=== PATIENT | female | born 1955 | race Caucasian/White ===

== ENCOUNTER 2020-05-07 10:00 | Inpatient (IN) ==
[2020-05-07 12:55] LABS: Basophils # (Auto) 0.02 K/mcL (0.00-0.20); Basophils % (Auto) 0.3 % (0.0-2.0); Eosinophils % (Auto) 5.1 % (0.0-7.0); Hematocrit 38.9 % (36.0-48.0); Hemoglobin 12.5 g/dL (12.0-15.0); Lymphocytes # (Auto) 1.33 K/mcL (1.50-4.80); Lymphocytes % (Auto) 22.7 % (15.0-49.0); Mean Corpuscular HGB Conc 32.1 g/dL (31.0-36.0); Mean Platelet Volume 12.3 fL (7.4-10.4); Monocytes # (Auto) 0.32 K/mcL (0.10-0.90); Monocytes % (Auto) 5.5 % (1.0-12.0); Neutrophils % (Auto) 66.4 % (38.0-78.0); Platelet Count 188 K/mcL (140-440); RBC 4.01 M/mcL (4.00-5.20); Red Cell Distribution Width 14.2 % (11.5-14.5); WBC 5.9 K/mcL (4.5-11.0)
[2020-05-07 13:14] LABS: Estimated Average Glucose(eAG) 120 mg/dL; Hemoglobin A1C 5.8 % Hgb (4.0-6.0)
[2020-05-07 13:38] LABS: Blood Urea Nitrogen 23 mg/dL (8-23); Calcium 9.3 mg/dL (8.6-10.4); Carbon Dioxide 27 mmol/L (22-30); Chloride 105 mmol/L (96-108); Glomerular Filtration Rate 53; Glucose 120 mg/dL (70-105)
[2020-05-07 15:32] LABS: Appearance,Urine CLEAR (Clear); Bilirubin,Urine Negative (Negative); Color,Urine STRAW; Culture Indicated,Urine No; Glucose,Urine (UA) Negative (Negative); Ketones,Urine Negative (Negative); Leukocyte Esterase,Urine Negative /ug (Negative); Nitrate,Urine Negative (Negative); Protein,Urine Negative (Negative); Urine Blood Negative (Negative); Urobilinogen,Urine Negative
[2020-05-14] MEDS ORDERED: PREGABALIN 75 MG CAPSULE PO SCH (06:00)
[2020-05-14] MEDS ORDERED: oxyCODONE 10 MG TAB.ER.12H PO SCH (06:00)
[2020-05-14] MEDS ORDERED: CELECOXIB 200 MG CAPSULE PO SCH (06:00)
[2020-05-14] MEDS ORDERED: ACETAMINOPHEN 500 MG TABLET PO SCH (06:00)
[2020-05-14] MEDS ORDERED: ceFAZolin 3 GM in DEXTROSE 5% IN WATER 50 ML IV SCH (06:00)
[2020-05-14] MEDS ORDERED: SCOPOLAMINE 1 PATCH PATCH TOPICAL PRN (11:00)
[2020-05-14] MEDS ORDERED: IPRATROPIUM/ALBUTEROL 3 ML AMPUL.NEB NEB PRN ×2 (11:00→14:34)
[2020-05-14] MEDS ORDERED: ceFAZolin 1 GM VIAL ONE (12:00)
[2020-05-14] MEDS ORDERED: GENTAMICIN SULFATE 800 MG/20 ML VIAL IR ONE (12:17)
[2020-05-14] MEDS ORDERED: TRANEXAMIC ACID 1,000 MG/10 ML VIAL IV ONE (13:21)
[2020-05-14] MEDS ORDERED: ePHEDrine 50 MG/ML AMPUL IV ONE (13:21)
[2020-05-14] MEDS ORDERED: PROPOFOL 200 MG/20 ML VIAL IV ONE (13:21)
[2020-05-14] MEDS ORDERED: ROPIVACAINE HCL/PF 30 ML VIAL IJ ONE (13:21)
[2020-05-14] MEDS ORDERED: ONDANSETRON 4 MG/2 ML VIAL ONE (13:21)
[2020-05-14] MEDS ORDERED: fentaNYL 250 MCG/5 ML VIAL IV ONE (13:21)
[2020-05-14] MEDS ORDERED: DEXAMETHASONE 10 MG/ML VIAL ONE (13:21)
[2020-05-14] MEDS ORDERED: LIDOCAINE HCL/PF 100 MG/5 ML SYRINGE IV ONE (13:21)
[2020-05-14] MEDS ORDERED: HYDROmorphone 1 MG/ML SYRINGE ONE (13:21)
[2020-05-14] MEDS ORDERED: KETAMINE 100 MG/ML ML ONE (13:21)
[2020-05-14] MEDS ORDERED: LACTATED RINGERS 250 ML IV PRN (14:34)
[2020-05-14] MEDS ORDERED: MEPERIDINE 25 MG/ML SYRINGE IV PRN (14:34)
[2020-05-14] MEDS ORDERED: PROMETHAZINE 25 MG/ML VIAL IV PRN (14:34)
[2020-05-14] MEDS ORDERED: diphenhydrAMINE 50 MG/ML VIAL IV PRN (14:34)
[2020-05-14] MEDS ORDERED: NALOXONE HCL 0.4 MG/ML VIAL IV PRN (14:34)
[2020-05-14] MEDS ORDERED: BENZOCAINE/MENTHOL 1 LOZENGE PO PRN ×2 (14:34→14:48)
[2020-05-14] MEDS ORDERED: ONDANSETRON 4 MG/2 ML VIAL IV PRN ×2 (14:34→14:48)
[2020-05-14] MEDS ORDERED: BISACODYL 10 MG SUPP.RECT PR PRN (14:48)
[2020-05-14] MEDS ORDERED: ACETAMINOPHEN 325 MG TABLET PO PRN (14:48)
[2020-05-14] MEDS ORDERED: POLYETHYLENE GLYCOL 3350 17 GM PACKET PO PRN (14:48)
[2020-05-14] MEDS ORDERED: TRANEXAMIC ACID 1,000 MG/10 ML VIAL IV SCH (14:48)
[2020-05-14] MEDS ORDERED: HYDROmorphone 1 MG/ML SYRINGE IV PRN (14:48)
[2020-05-14] MEDS ORDERED: FLEETS ADULT ENEMA PR PRN (14:48)
[2020-05-14] MEDS ORDERED: MAGNESIUM HYDROXIDE 30 ML ORAL.SUSP PO PRN (14:48)
--- NOTE | 2020-05-14 14:48 | Brief Operative Note ---
Brief Operative Note Date of procedure: 05/14/20 Pre-op diagnosis: Left shoulder avn and djd and humerus fx Post-op diagnosis: same Procedure: Left reverse tsa and hardware removal and bicep tenolysis Grafts/Implants: Yes Anesthesia: GETA Complications: none Surgeon: Richie Amaya Grades 1 Thru 6 Visiting Teacher: Massimo Hastings Estimated blood loss (cc): 50 Tourniquet Time (Minutes): 0 Specimens Removed/Pathology: none sent Condition: stable Disposition: PACU
--- NOTE | 2020-05-14 15:01 | Discharge Plan ---
Discharge Instructions - TSA Patient Instructions Total Shoulder Protocol: Leave immobilizer in place except for bathing and ROM. Abduction pillow. Continue to wear sling until seen by physician. Codman Pendulum : These exercises use momentum produced by your body to move your shoulder joint. Bend your knees and shift your weight to your front leg, then back, allowing your arm to swing in the same directions. Using the same technique, alternately shift your weight between your right and left legs, allowing your arm to swing from side to side. These exercises are also performed in counterclockwise and clockwise circular motions. Typically these exercises are performed several times per day, for a set number repetitions or minutes, such as 20 times in a row or 5 minutes at a time. Discharge Plan Patient/Caregiver Discharge Instructions Activity: as per physical therapy Diet: Regular Diet Prescriptions: New hydrocodone-acetaminophen 10-325 mg Tablet 1 - 2 tab PO Q4HP PRN (Reason: Pain Level 3-6) Qty: 75 RF: 0 docusate sodium 100 mg Capsule 100 mg PO BID Qty: 60 RF: 0 No Action metformin 1,000 mg tablet 1,000 mg PO BIDCC Qty: 60 RF: 0 omeprazole 20 mg capsule,delayed release(DR/EC) 20 mg PO QDAY Qty: 90 RF: 1 gabapentin 300 mg capsule 300 mg PO HS Qty: 90 RF: 1 furosemide 20 mg tablet 20 mg PO DAILY Qty: 30 RF: 3 bupropion HCl 300 mg tablet extended release 24 hr 300 mg PO QAM Qty: 30 RF: 3 potassium chloride 10 mEq capsule, extended release 10 meq PO QDAY Qty: 90 RF: 0 atenolol 50 mg tablet 50 mg PO QAM Qty: 90 RF: 0 pioglitazone 15 mg tablet 15 mg PO QAM Qty: 90 RF: 0 levothyroxine 75 mcg tablet 75 mcg PO QDAY Qty: 90 RF: 0 lisinopril 20 mg tablet 20 mg PO DAILY Qty: 90 RF: 0 atorvastatin 80 mg tablet 80 mg PO DAILY Qty: 90 RF: 0 aspirin 81 mg tablet,chewable 81 mg PO QDAY RF: 0 Other Ambulatory Orders: Brace/Splint (ONCE) Location: None Selected Ordered By: Massimo Hastings Physical Therapy DC - TSA (Routine) Location: None Selected Ordered By: Massimo Hastings Follow Up Plan Follow up with: Massimo Hastings PA-C [Physician Stereotyper] - 05/29/20 11:20 am Patient Disposition: Home, Self-Care Prognosis: Good Rehab Potential: Good I certify that the patient requires SNF services: No Overall status at discharge: patient is progressing back to baseline Discharge Orders: Discharge Order (Routine); Ordered 05/15/20 Ordered By: Massimo Hastings
--- NOTE | 2020-05-14 15:16 | Operative Note ---
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 PROCEDURE: Left reverse total shoulder with hardware removal x4 screws for positioning of the stem. SURGEON: Richie Amaya M.D. PUBLIC ACCOUNTANT: Massimo Hastings PA-C. The PA's assistance was required for the safe and efficient completion of the entire case. This providers expertise and technical skill were required throughout the case. The PA assisted with preoperative coordination, intraoperative retraction, wound closure, dressing and splint application, as well as postoperative documentation and care coordination. ANESTHESIA: General LMA anesthesia. COMPLICATIONS: None. ESTIMATED BLOOD LOSS: About 50 mL. No blood products were given. MEDICATIONS: Preoperative antibiotics and tranexamic acid were given. IMPLANTS: [place] components, size 9 stem, size 36 mm glenosphere with 2 mm of offset and 2 mm of eccentricity. DESCRIPTION OF PROCEDURE: The patient was brought to the operating room, put to sleep with general LMA anesthesia. Once asleep, the patient had the left arm sterilely prepped and draped in the usual sterile fashion in a beach chair position. Timeout was performed, confirming the left arm as the operative site by initials, consent form, and x-rays. We made an incision through a prior scar and identified the plate and screws. Four screws were removed to the proximal plate. Once this was done, we then made our incision for the deltopectoral approach. The muscle was scarred down to the humerus for lack of motion. We then made an incision, opened the capsule, released the remnants of the biceps, and then after dislocating the humeral head we were able to make our neck cut at 135 degrees. Once this was done, we then removed the bony fragment of the head, which had collapsed substantially. Spurs were removed. The capsular release was performed. We then subluxed the humeral head posteriorly and then performed a 360-degree capsular release and removal of the remnants of the biceps tendon. Tenolysis had been performed of the biceps tendon and labrum was removed. We then released the inferior capsule. Once done, we placed the pin centrally. We reamed up to a size 36. We removed inferior spurs and then we placed a metaglene. The metaglene was placed with a central screw measuring 36 mm. The other screws were 24, 20, and 20 with good purchase. We irrigated thoroughly and then placed the glenosphere. This measured 2 mm of offset, 2 mm of eccentricity. This was tapped onto the metaglene. Once locked, we then prepared the humerus. The humerus was reamed up to size 9. We broached up to size 9 and implanted a size 9 stem with a standard-thickness poly. The tension equaled very well. We took the arm through its range of motion and irrigated thoroughly. There was some small amount of cement placed distally for early fixation given the bone quality. Once positioned and implants placed, we reduced the shoulder and repaired the wounds. Stratafix was used to close the open wounds x2. We then closed the skin with adhesive closure. There were no complications. A Donjoy sling was fitted and given to the patient at the end of the case. RBH:rafael Job ID: [id number] Doc ID: [id number] Richie Amaya MD
[2020-05-14] MEDS: fentaNYL 100 MCG/2 ML VIAL IV PRN ×8 (15:23→15:45)
[2020-05-14] MEDS: LACTATED RINGERS 1,000 ML IV SCH ×3 (15:39→21:52)
[2020-05-14] MEDS ORDERED: HYDROmorphone 0.5 MG/0.5 ML SYRINGE IV PRN (15:47)
[2020-05-14] MEDS ORDERED: LORazepam 2 MG/ML VIAL IV PRN (15:47)
[2020-05-14] MEDS ORDERED: HALOPERIDOL LACTATE 5 MG/ML VIAL IV PRN (15:48)
--- NOTE | 2020-05-14 16:00 | XRay Report ---
CLINICAL INFORMATION: Post-Op Total Shoulder COMPARISON: None. FINDINGS: Total shoulder prostheses is anatomically aligned. Plate and screws transfix an old mid humeral diaphyseal fracture with mild deformity. Acromioclavicular joint is normal. IMPRESSION: Volar prostheses anatomically aligned. Interpreted and Authenticated by: Alphonse Carrillo 05/14/20
[2020-05-14] MEDS ORDERED: METOPROLOL TARTRATE 5 MG/5 ML VIAL IV ONE (16:25)
[2020-05-14] MEDS ORDERED: SENNOSIDES 1 TABLET PO SCH (21:00)
[2020-05-14] MEDS ORDERED: TEMAZEPAM 15 MG CAPSULE PO PRN (21:00)
[2020-05-14] MEDS ORDERED: GABAPENTIN 300 MG CAPSULE PO SCH (21:00)
[2020-05-14] MEDS: ceFAZolin 1 GM VIAL IV SCH (21:53)
[2020-05-14] MEDS: metFORMIN 500 MG TABLET PO SCH (21:53)
[2020-05-14] MEDS: HYDROcodone/APAP 10/325MG TABLET PO PRN (21:54)
[2020-05-14] MEDS: 0.9 % SODIUM CHLORIDE 10 ML SYRINGE IV SCH (21:54)
[2020-05-14] MEDS: DOCUSATE SODIUM 100 MG CAPSULE PO SCH (21:54)
[2020-05-15] MEDS: LACTATED RINGERS 1,000 ML IV SCH ×2 (01:36→11:41)
[2020-05-15] MEDS: ceFAZolin 1 GM VIAL IV SCH (04:21)
[2020-05-15] MEDS: HYDROcodone/APAP 10/325MG TABLET PO PRN (04:21)
[2020-05-15] MEDS: 0.9 % SODIUM CHLORIDE 10 ML SYRINGE IV SCH (05:59)
[2020-05-15] MEDS ORDERED: LEVOTHYROXINE 75 MCG TABLET PO SCH (07:30)
[2020-05-15] MEDS ORDERED: OMEPRAZOLE 20 MG CAPSULE PO SCH (07:30)
[2020-05-15] MEDS: metFORMIN 500 MG TABLET PO SCH (07:39)
--- NOTE | 2020-05-15 07:44 | Orthopedic Progress Note ---
SUBJECTIVE Subjective Patient information: Note initiated : 05/15/20 at 7:43 am Service Date, if different from initiated Date: [] Patient: Unique Dias 64 y/o F admitted on 05/14/20 for Left Reverse Total Shoulder Arthroplasty with. Chief Complaint: [Pt is stable this morning on post operative day without any significant concerns or complaints. Patients vital signs have remained stable. Patients dressing is dry and is grossly intact from a neurovascular and motor standpoint. Patients 10 point ROS is otherwise negative. ] Constitutional Vitals: Vital Signs Temp Pulse Resp BP Pulse Ox 98.5 F 81 22 144/93 90 05/15/20 07:18 05/15/20 07:18 05/15/20 07:18 05/15/20 07:18 05/15/20 07:18 Period Temp Pulse Resp BP Sys/Blanco Pulse Ox Last 24 Hr 98.3 F-99.2 F 75-111 13-24 105-208/61-115 90-100 Intake and Output 05/14/20 05/15/20 05/15/20 21:59 05:59 13:59 Intake Total 457 1180 Balance 457 1180 Weight 294 lb 8 oz Intake & Output: Intake & Output 05/14/20 05/15/20 05/15/20 21:59 05:59 13:59 Intake Total 457 1180 Balance 457 1180 Weight 294 lb 8 oz Intake: IV 57 820 Lactated Ringers 1,000 ml @ 20 7 820 mls/hr IV .Q24H ROBERTO Rx#: [id number] Ancef 3 gm In Dextrose 5% in 50 Water 50 ml @ 100 mls/hr IV PREOP ROBERTO Rx#:[id number] Oral 360 IV - Manual Only 400 Other: Meal Nourishment/Supplement Percent of Meal Consumed 100% Feeding Ability Assist with Tray Set Up Nourishment/Supplement name crackers # Voids 1 1 Extremities Exam Extremities exam: Present normal capillary refill, normal inspection, Foot pink and warm and neurovascular intact OBJ DATA Labs CBC & Chem 7: 05/07/20 10:41 05/07/20 10:41 Meds: Medications Acetaminophen (Tylenol) 650 mg PO Q6HP PRN PRN Reason: PAIN/FEVER > 101 Hydrocodone Bitart/Acetaminophen ([place] 10/325mg) 0 tab PO Q4HP PRN PRN Reason: PAIN LEVEL 3-6 Last Admin: 05/15/20 04:21 Dose: 2 tab Documented by: Aspirin (Aspirin) 81 mg PO QDAY [facility] Atenolol (Tenormin) 50 mg PO QAM [facility] Atorvastatin Calcium (Lipitor) 80 mg PO DAILY [facility] Bisacodyl (Dulcolax) 10 mg AL Q2-3DAYS PRN PRN Reason: Constipation Bupropion HCl (Wellbutrin Xl) 300 mg PO DAILY [facility] Docusate Sodium (Colace) 100 mg PO BID [facility] Last Admin: 05/14/20 21:54 Dose: 100 mg Documented by: Furosemide (Lasix) 20 mg PO DAILY [facility] Gabapentin (Neurontin) 300 mg PO [facility] Last Admin: 05/14/20 21:54 Dose: 300 mg Documented by: Hydromorphone HCl (Dilaudid) 0 mg IV Q2HP PRN; Protocol PRN Reason: Per Pain Protocol Lactated Ringer's (Lactated Ringers) 1,000 mls @ 100 mls/hr IV .Q10H [facility] Last Admin: 05/15/20 01:36 Dose: Not Given Documented by: Levothyroxine Sodium (Synthroid) 75 mcg PO ACB [facility] Last Admin: 05/15/20 07:39 Dose: 75 mcg Documented by: Lisinopril (Zestril) 20 mg PO DAILY [facility] Magnesium Hydroxide (Milk Of Magnesia) 30 ml PO BIDP PRN PRN Reason: Constipation Metformin HCl (Glucophage) 1,000 mg PO BIDCC [facility] Last Admin: 05/15/20 07:39 Dose: 1,000 mg Documented by: Omeprazole (Prilosec) 20 mg PO ACB [facility] Last Admin: 05/15/20 07:38 Dose: 20 mg Documented by: Ondansetron HCl (Zofran) 4 mg IV Q4HP PRN PRN Reason: Nausea And Vomiting Pioglitazone HCl (Actos) 15 mg PO QAM [facility] Polyethylene Glycol (Miralax) 17 gm PO DAILYP PRN PRN Reason: Constipation Potassium Chloride (Kdur) 10 meq PO QAMCC [facility] Last Admin: 05/15/20 07:38 Dose: 10 meq Documented by: Senna (Senokot) 2 tab PO HS [facility] Last Admin: 05/14/20 21:54 Dose: 2 tab Documented by: Sodium Biphosphate/Sodium Phosphate (Fleets Adult) 1 dose AL Q3-4DAYS PRN PRN Reason: Constipation Sodium Chloride (Saline Flush) 10 ml IV Q8 [facility]ERTO Last Admin: 05/15/20 05:59 Dose: 10 ml Documented by: Temazepam (Restoril) 15 mg PO HSP PRN PRN Reason: Insomnia Throat Lozenges (Cepacol) 1 lozenge PO PRN PRN PRN Reason: Sore Throat A/P Narrative A/P Narrative: The patient has been educated regarding dressing care, Physical Therapy recommendations, home exercises, restrictions, and follow up appointments. The patient has had all necessary DME prescribed. The patient has remained relatively stable during their hospital course. Time Spent With Patient Time: Total time spent is greater than 50% in coordination of care (as documented) at patient's floor/unit and/or counseling patient: Total time spent with greater than 50% in coordination of care (as documented) at patient's floor/unit and/or counseling patient:: less than 15 minutes
[2020-05-15] MEDS ORDERED: POTASSIUM CHLORIDE 10 MEQ TABLET PO SCH (08:00)
[2020-05-15] MEDS ORDERED: buPROPion 150 MG TAB.XL.24H PO SCH (09:00)
[2020-05-15] MEDS ORDERED: ATORVASTATIN 40 MG TABLET PO SCH (09:00)
[2020-05-15] MEDS ORDERED: FUROSEMIDE 20 MG TABLET PO SCH (09:00)
[2020-05-15] MEDS ORDERED: PIOGLITAZONE 15 MG TABLET PO SCH (09:00)
[2020-05-15] MEDS ORDERED: ASPIRIN 81 MG TAB.CHEW PO SCH (09:00)
[2020-05-15] MEDS ORDERED: ATENOLOL 50 MG TABLET PO SCH (09:00)
[2020-05-15] MEDS ORDERED: LISINOPRIL 20 MG TABLET PO SCH (09:00)
[2020-05-15] MEDS: DOCUSATE SODIUM 100 MG CAPSULE PO SCH (09:11)
== END 2020-05-15 11:10 | disposition home or self-care (01) | DRG 483 ==
LOC: MEDSUR 05-14 10:28
PROVIDERS: ADMIT Orthopaedic Surgery; ATTEND Orthopaedic Surgery